=== PATIENT | female | born 1990 | race African-American/Black ===

== ENCOUNTER 2017-03-06 14:34 | Emergency (ER) | payer BC ==
[~2017-03-06 14:34] MED LIST: GENTAMICIN SULF15 GM OP
== END 2017-03-06 15:47 | disposition home or self-care (01) ==
LOC: CED 14:34 → CFTX 14:34
DX: S05.01XA Injury of conjunctiva and corneal abrasion without foreign body, right eye, initial encounter (principal); Z88.0 Allergy status to penicillin; X58.XXXA Exposure to other specified factors, initial encounter; Y92.9 Unspecified place or not applicable
CPT/HCPCS: 99283

== ENCOUNTER 2017-06-03 17:18 | Emergency (ER) | payer BC ==
[~2017-06-03] VITALS: Ht 160 cm; Wt 83.9 kg
== END 2017-06-03 18:00 | disposition home or self-care (01) ==
LOC: CFTX 17:18 → CED 17:18 → CFTX 17:37
DX: K08.89 Other specified disorders of teeth and supporting structures (principal); R03.0 Elevated blood-pressure reading, without diagnosis of hypertension; Z88.0 Allergy status to penicillin
CPT/HCPCS: 99283